=== PATIENT | male | born 1950 ===

== ENCOUNTER 2018-12-01 09:22 | Day surgery (SDC) | payer BC ==
[~2018-12-01 09:22] MED LIST: Buffered Lidocaine 1% SYRIN* 1 ML/SYRINGE INTRADERM ONE; Lactated Ringers 1000 ML Bag* 1,000 ML IV SCH
[2018-12-01] MEDS ORDERED: ceFAZolin 2 GM PREMIX in ORs 2 GM/50 ML BAG ONE (09:32)
[2018-12-01] MEDS ORDERED: Bupivacaine 0.25% SDV* 30 ML ONE (11:03)
[2018-12-01] MEDS ORDERED: Midazolam* 1 MG/ML 2 ML VIAL (2 MG) ONE (11:38)
[2018-12-01] MEDS ORDERED: Lidocaine 0.5%* 50 ML SDV ONE (11:38)
[2018-12-01] MEDS ORDERED: Propofol* 10 MG/ML 20 ML BTL ONE (11:54)
[2018-12-01] MEDS ORDERED: HYDROcodone/ACETAMIN 5-325 MG* 1 TAB PO PRN (12:54)
[2018-12-01] MEDS ORDERED: Naloxone* 0.4 MG/ML 1 ML VIAL IV PRN (12:54)
[2018-12-01 13:28] VITALS: BP 112/95
--- NOTE | 2018-12-01 21:53 | OP ---
DATE OF OPERATION: 12/01/18 - [facility] DATE OF : 46 SURGEON: Agustín Tejada MD VICE PRESIDENT DIGITAL STRATEGIST: SMILEY Adams ANESTHESIOLOGIST: Dr. Caruso. ANESTHESIA: Shweta block. PRE-OP DIAGNOSIS: Left hand deep indeterminate soft tissue mass. POST-OP DIAGNOSIS: Left hand deep indeterminate soft tissue mass. OPERATIVE PROCEDURE: Excision of left hand deep soft tissue mass. INDICATIONS: Mr. Torres is 68. He has developed a very symptomatic mass. I got an MRI; it showed a mass just sitting on the palmar aspect of the second metacarpal shaft just deep to the adductor pollicis muscle. I had talked to him about this. I told him that it is likely benign. It looks like the mass is in continuity with some sort of longitudinal structure. I told him I am not aware of any nerve that is in that region, so this is likely a blood vessel that is in continuity with. He understands and he wishes to proceed with surgery. ESTIMATED BLOOD LOSS: 2 mL. COMPLICATIONS: None. FINDINGS: See above and below. DESCRIPTION OF PROCEDURE: Mr. Torres was seen in the preoperative holding area. The correct site, side, and procedure were identified. We came back to the operating room where a forearm tourniquet was placed and a Shweta block was done. The arm was prepped and draped in the usual fashion and a time-out was performed. I made an incision starting near the palmar aspect of the MCP joint, coming radial and then coming back, in one of the palmar creases, dissection was carried down. The radial digital nerve was identified. The ulnar digital nerve was visualized, but the soft tissue plane between the nerve and the tendon was not disturbed. The A1 porter was visualized. The end of the tendon sheath was visualized. The soft tissue overlying the tendons proximally was released. The tendon was retracted out of the way ulnarly. The mass was palpable just deep to the adductor pollicis muscle. I placed an [employer] and was able to retract the muscle proximally. I then released some soft tissue and little bit of fatty tissue around the mass and then there was a vessel that had a very large clotted off segment about 7 or 8 mm in length in continuity with this. I tied off the structure distally with a 4-0 silk tie and then I cut the vessel just proximal to that. There was a nice lumen. It was clearly a vessel. I then came to the other side of the mass and I tied it off with a 4-0 silk tie and then I cut that structure just distal to that silk tie and then I was able to hand the mass off as a specimen. There was a bit of reactive bone just deep to that, but clearly that was the mass and it was now excised. I had confirmed that right where the mass was about 2 cm proximal to the apex of the palmar aspect of the metacarpal head and that was right where it was. At this point, I felt pretty confident that we had fully excised the mass. Everything was looking good. There was nothing but clean healthy tissue that remained. I irrigated out the wound. I did not inject any surrounding local anesthetic just to follow good tumor principles. I did just drizzle 2 to 3 mL of 0.25% Marcaine right on into the wound. The skin was then closed with 4-0 nylon suture. A soft dressing was applied and he was taken to the recovery room in stable condition. [id number]/[facility] #: [id number] DEEPA
== END 2018-12-01 13:48 | disposition home or self-care (01) ==
LOC: OREAST 09:22
PROVIDERS: ATTEND Orthopaedic Surgery Hand Surgery
DX: D18.01 Hemangioma of skin and subcutaneous tissue (principal); I10 Essential (primary) hypertension; Z85.46 Personal history of malignant neoplasm of prostate; Z87.891 Personal history of nicotine dependence
CPT/HCPCS: 88304; 88341; 88342; J0690; J2250; J2704; J3490